=== PATIENT | male | born 1965 | race Two or more races ===

== ENCOUNTER 2022-07-26 05:05 | Emergency (ER) | payer OTHER ==
[~2022-07-26] VITALS: Ht 170.2 cm; Wt 69.4 kg
[2022-07-26] MEDS ORDERED: LYRICA200 MG PO (05:22)
[2022-07-26] MEDS ORDERED: SYNTHROID100 MCG PO (05:23)
== END 2022-07-26 09:58 | disposition home or self-care (01) ==
LOC: ER 05:05
DX: T63.481A Toxic effect of venom of other arthropod, accidental (unintentional), initial encounter (principal); Y92.9 Unspecified place or not applicable

== ENCOUNTER 2022-08-22 16:48 | Emergency (ER) | payer OTHER ==
[~2022-08-22] VITALS: Ht 175.3 cm; Wt 72.6 kg
[~2022-08-22 16:48] MED LIST: LYRICA200 MG PO; SYNTHROID100 MCG PO
[2022-08-22] MEDS ORDERED: MEDROLPACK PO (22:28)
[2022-08-22] MEDS ORDERED: ZITHROMAX500 MG PO (22:28)
== END 2022-08-22 23:11 | disposition home or self-care (01) ==
LOC: ER 16:48
DX: J06.9 Acute upper respiratory infection, unspecified (principal); Z20.828 Contact with and (suspected) exposure to other viral communicable diseases